=== PATIENT | male | born 1955 | race Asian ===

== ENCOUNTER 2020-08-29 01:58 | Inpatient (IN) | payer SELFPAY ==
[~2020-08-29] VITALS: Ht 182.9 cm; Wt 83.5 kg
[2020-08-29 02:01] VITALS: Ht 182.9 cm; Wt 83.5 kg
--- NOTE | 2020-08-29 03:06 | NUR ---
RT AT THE BEDSIDE. CATTLE DRIVER AT THE BEDSIDE
[2020-08-29 03:20] LABS: BASOPHIL % 0.1 % (0.2-1.5); PLATELET COUNT 185 x10^3mcL (152-348); RED CELL DISTRIBUTION WIDTH 12.7 % (12.1-16.2)
--- NOTE | 2020-08-29 04:03 | NUR ---
PT NOTED SATING AT 94-95% ON RA. PT REQUESTED OXYGEN THERAPY. PT PLACED ON 2 L VIA NC FOR COMFORT.
[2020-08-29 04:11] LABS: AST/SGOT 47 U/L (15-37); CALCIUM 8.4 mg/dL (8.5-10.1); CHLORIDE SERUM 95 mmol/L (98-107); CREATININE SERUM 1.2 mg/dL (0.7-1.3); GFR1 > 60 mL/min; GLUCOSE SERUM 246 mg/dL (74-106); POTASSIUM SERUM 3.5 mmol/L (3.5-5.1); SODIUM SERUM 130 mmol/L (136-145)
[2020-08-29 04:23] LABS: ALKALINE PHOSPHATASE 181 U/L (46-116); ALT/SGPT 95 U/L (16-63); BILIRUBIN TOTAL 1.11 mg/dL (0.20-1.00); CARBON DIOXIDE 27.4 mmol/L (21-32); LACTIC DEHYDROGENASE (LDH) 297 U/L (100-190); TOTAL PROTEIN, SERUM 7.6 g/dL (6.4-8.2)
[2020-08-29 04:37] LABS: C REACTIVE PROTEIN 29.6 mg/dL (<=0.9)
[2020-08-29 06:13] LABS: CHOLESTEROL/HDL RATIO 2.9; MAGNESIUM 2.1 mg/dL (1.8-2.4)
[2020-08-29 06:18] LABS: T3 TOTAL 0.75 ng/mL
[2020-08-29 06:22] LABS: FREE T4 1.34 ng/dL (0.76-1.46); FREE THYROXINE INDEX 2.6 ug/dL (1.4-4.5); T4(THYROXINE) 6.7 ug/dL (4.7-13.3)
[2020-08-29 06:32] LABS: microscopic required? YES; urine erythrocyte TRACE (NEGATIVE)
[2020-08-29 06:43] LABS: AMPHETAMINE QUAL UR NONE DETECTED (See below)
--- NOTE | 2020-08-29 07:20 | NUR ---
PATIENT LYING IN BED AWAKE, NAD NOTED AT THIS TIME. PATIENT AAOX4, RESPIRATIONS E/U. PATIENT STATES COUGH AND SOB X2 DAYS, CLOSE CONTACT WITH +COVID19 FRIEND X7 DAYS. JAYDEN EQUAL STRONG COMPLIANCE QUALITY PERFORMANCE ANALYST, +PMCS NOTED, IV PATENT AND FLUSHED WITH 10 MLS OF NS. SAFETY PRECAUTIONS IN PLACE AND CALL LIGHT WITHIN REACH.
--- NOTE | 2020-08-29 08:01 | NUR ---
CALLED PHARMACY TO ORDER PATIENT 0900 MEDICATIONS. PER [facility]ARENA MEDICATIONS WILL BE READY IN 15-20 INUTES.
--- NOTE | 2020-08-29 08:15 | NUR ---
LAB AT BEDSIDE
[2020-08-29 08:26] LABS: PLATELET COUNT 198 x10^3mcL (152-348); RED CELL DISTRIBUTION WIDTH 13.1 % (12.1-16.2)
[2020-08-29 08:55] LABS: BASOPHIL % 0 % (0.2-1.5)
[2020-08-29 09:00] LABS: ALKALINE PHOSPHATASE 177 U/L (46-116); ALT/SGPT 83 U/L (16-63); AST/SGOT 44 U/L (15-37); CALCIUM 8.9 mg/dL (8.5-10.1); CARBON DIOXIDE 28.4 mmol/L (21-32); CHLORIDE SERUM 96 mmol/L (98-107); GFR1 > 60 mL/min; GLUCOSE SERUM 172 mg/dL (74-106); SODIUM SERUM 131 mmol/L (136-145); TOTAL PROTEIN, SERUM 7.4 g/dL (6.4-8.2)
[2020-08-29 09:06] LABS: ALBUMIN 2.9 g/dL (3.4-5.0)
--- NOTE | 2020-08-29 11:30 | NUR ---
PATIENT MANPREET TEMPERATURE 100.7 F. PATIENT MEDICATED WITH TYLENOL 650 MG PO, PATIENT CALL LIGHT WITHIN REACH.
--- NOTE | 2020-08-29 11:38 | NUR ---
PATIENT TOOK SIP OF WATER STARTED COUGHING, PATIENT STARTED SATING 83-86% WITH NC ON 2L OF O2, INCREASED TO 4L, PATIENT CONTINUED SATING 84-86%, PLACED PATIENT ON SIMPLE MASK 10L OF O2 PATIENT CONTINUED SATING 85-86%. PATIENT THEN PLACED ON NON REBREATHER MASK ON 15L OF O2. PATIENT NOW SATING 90%, WILL CONTINUE TO MONITOR, CALL LIGHT WITHIN REACH.
--- NOTE | 2020-08-29 12:02 | NUR ---
PATIENT BS 170, PATIENT MEDICATED WITH REGULAR INSULIN 3 UNITS, BASED ON PATIENT SLIDING SCALE, PLEASE SEE EMAR. PATIENT TOLERATED WELL, CALL LIGHT WITHIN REACH. PATIENT IS NOW SATING 96% ON NON REBREATHER MASK WITH 15L, WILL CONTINUE TO MONITOR.
--- NOTE | 2020-08-29 12:05 | NUR ---
CALLED RT REGARDING PATIENT ABLUTEROL INH TREATMENT, PER EMAR.
--- NOTE | 2020-08-29 12:51 | NUR ---
PATIENT REMOVED FROM NON REBREATHER MASK TO NC ON 4L OF O2 AT THIS TIME. PATIENT NOW SATING 96% WITH 4L OF O2 VIA NC. PATIENT CONTINUES WITH TEMPERATURE OF 100.2 AND DIAPHORETIC, REMOVED BLANKET AND STARTED COOLING MEASURES. PATIENT FOOD AT BEDSIDE, WILL CONTINUE TO MONITOR, CALL LIGHT WITHIN REACH.
--- NOTE | 2020-08-29 13:41 | NUR ---
PATIENT ATE 75% OF FOOD. PATIENT STATES, "I FEEL BETTER." PATIENT CONTINUES WITH 100.9 F TEMPERATURE, NOTIFIED MD. CALL LIGHT WITHIN REACH.
--- NOTE | 2020-08-29 13:57 | NUR ---
PT GIVEN ICEPACKS TO AXILLA FOR FEVER. PT LAYING SUPINE WITH EYS CLOSE, NO DISTRESS. REMAINS CONNECTED TO FULL CM.
--- NOTE | 2020-08-29 15:05 | NUR ---
PATIENT LYING IN BED AWAKE, NAD AT THIS TIME. PATIENT STATES "I FEEL BETTER" PATIENT CALL LIGHT WITHIN REACH.
--- NOTE | 2020-08-29 17:15 | NUR ---
PATIENT BS207, MEDICATED WITH REGULAR INSULIN 6 UNITS SUBQ, PLEASE SEE EMAR, PATIENT TOLERATED WELL, CALL LIGHT WITHIN REACH.
--- NOTE | 2020-08-29 17:38 | NUR ---
PATIENT DINNER AT BEDSIDE
--- NOTE | 2020-08-29 18:18 | NUR ---
PATIENT ATE 60% OF HIS DINNER, PATIENT DURING DIINER STARTED SATTING 87-88% WITH 4L OF O2 VIA NC, PLACED ON 15L OF NON REBREATHER MASK, PATIENT NOW SATING 95%, WILL CONTINUE TO MONITOR, CALL LIGHT WITHIN REACH.
--- NOTE | 2020-08-29 19:00 | NUR ---
NOTIFIED RESIDENT DR. GARCIA, PATIENT BP178/91. PER RESIDENT DR. GARCIA, "I WILL PLACE MEDICATION ORDER AND PRN ORDER."
--- NOTE | 2020-08-29 19:26 | NUR ---
REPORT GIVEN TO ANTONIO TOMLINSON TO ASSUME PATIENT CARE
--- NOTE | 2020-08-29 20:28 | NUR ---
MEDICATED PT FOR FEVER. (1GM TYLENOL, 600MG IBU)
--- NOTE | 2020-08-29 23:48 | NUR ---
PT RESTING IN POSITION OF COMFORT IN GURNEY AT THIS TIME. NO ACUTE DISTRESS NOTED. BREATHING EVEN AND UNLABORED. GURNEY IN LOWEST POSITION. SAFETY MEASURES IN PLACE. NO APPARENT CHANGES AT THIS TIME.
--- NOTE | 2020-08-30 00:03 | NUR ---
REPORT GIVEN TO BUSHRA CLARK TO ASSUME CARE OF THE PT.
--- NOTE | 2020-08-30 01:40 | NUR ---
REC'D PT FROM ED VIA GAY ACCOMPANIED BY NURSE. PT ADM WITH CC OF SOB AND FEVERS. AAOX4, SPEECH CLEAR, FOLLOWS COMMANDS. C/O MILD R SIDED DURAN. TELE 42. A FIB. DENIES CP, DIZZINESS, OR PALPITATIONS. DENIES RESP DISTRESS OR SOB. BREATHING EVEN/UNLABORED ON 5L NC, SPO2 93%. ABD SOFT/ROUND. DENIES ABD PAIN, TENDERNESS, OR N/V. VOIDING FREELY. AMBULATORY. SKIN INTACT. IV TO LW, SITE WNL. ORIENTED TO DEVICES AND SURROUNDINGS. CALL LIGHT WITHIN REACH, BED AT LOWEST POSITION. REPORT GIVEN TO AMBER TOMLINSON.
[2020-08-30 01:42] VITALS: BP 134/79
[2020-08-30 06:08] VITALS: BP 144/90
--- NOTE | 2020-08-30 07:01 | NUR ---
PATIENT C/O DURAN 01/14. GAVE TYLENOL PRESCRIBED FOR DURAN. ALSO BROUGHT PATIENT THEIR PERSONAL PHARMACY ANCILLARY THAT A FAMILY MEMBER BROUGHT FROM THE ER.
--- NOTE | 2020-08-30 08:00 | NUR ---
RECEIVED PATIENT ALERT AND ORIENTED TIMES FOUR. JENNIFER PRESTON WITH MINIMAL MOVEMENT AND A KIND OF FLAT AFFECT AND ONLY ANSWERING MINIMALLY QUESTIONS. LUNG ARE DIMINISHED WITH A TIGHT SOUNDING RESPIRATION AND FINE RALSE TO THE LEFT LUNG. JENNIFER PRESTON HAD FEVE ROVER NIGHT AND TYLENOL WAS GIVEN. HE HAS NO FEVER AT THIS TIME. JENNIFER DEL ROSARIO BEEN AMBULATYORY AND HAS BEEN FEELING GENERAL WEAKNESS AND HAS BEEN RESTING IN BED. HE HAS 02 AT FIVE LITERS VIA NASAL CANNULA AND HAS NOTED. LABS OF WBC AT 14.6 AND BLOOD SUGAR THIS AM AT 169 WITH COVERAGE. DURAN HS BEEN NOTED WITH FERRITIN LEVEL OF 1129 AND HAS BEEN WITH CHEST XRAY SHOWING PNEUMONIA. PATIENT HAS HX OF COCAINE AND ALCOHOL USE AND HAS BEEN SEEN BY DR STYLES AND HAS BEEN SHOWN POSITIVE FOR COVID 19. HE RECEIVED LOVENOX OREERED AND IS ON TELE MONITOR WITH NSR AT THIS TIME.
[2020-08-30 09:13] VITALS: BP 141/92
[2020-08-30 10:08] LABS: PLATELET COUNT 248 x10^3mcL (152-348)
[2020-08-30 10:15] LABS: CALCIUM 8.7 mg/dL (8.5-10.1); CARBON DIOXIDE 27.6 mmol/L (21-32); CHLORIDE SERUM 97 mmol/L (98-107); CREATININE SERUM 1.1 mg/dL (0.7-1.3); GFR1 > 60 mL/min; GLUCOSE SERUM 146 mg/dL (74-106); MAGNESIUM 2.6 mg/dL (1.8-2.4); PHOSPHOROUS 3.1 mg/dL (2.5-4.9); POTASSIUM SERUM 3.5 mmol/L (3.5-5.1); SODIUM SERUM 134 mmol/L (136-145)
[2020-08-30 10:53] LABS: C REACTIVE PROTEIN 43.9 mg/dL (<=0.9)
[2020-08-30 12:05] VITALS: BP 166/89
--- NOTE | 2020-08-30 12:37 | NUR ---
PATIENT HAS FEVER OF ABOVE 101 AND GAVE TYLENOL ORDERED. REMDESIVIR ORDERED FOR PATIENT. SEEN BY THE PHYSICIAN.
--- NOTE | 2020-08-30 12:44 | NUR ---
PATIENT HAS BEEN SEEN BY PHYSICAL THERAPY AND DEEMED INDEPENDANT AT THIS TIME. TOLERATED OOB WELL.
[2020-08-30 15:46] LABS: BAND NEUTROPHIL 2 % (0-10); MONOCYTE 7 % (0-7); PLATELET MORPHOLOGY PLATELETS NORMAL; SEGMENTED NEUTROPHILS 88 % (37-75); rbc morphology (normal/abnorm) NORMAL (NORMAL)
--- NOTE | 2020-08-30 17:48 | NUR ---
PATIENT HAS BLODO SUGAR AT THIS TIME AT 225 AND COVERAGE INDICATED. TO START REMDESIVIR AND WILL MONITOR FOR ANY ADVERSE REACTION.
[2020-08-30 17:50] VITALS: BP 145/86
--- NOTE | 2020-08-30 19:13 | NUR ---
RECIEVED PT FROM AM RN. CALLED INTO PTS ROOM PT HAS NO CONCERNS AT THIS TIME. AWARE OF CHANGE OF SHIFT. WILL FOLLOW UP SHORTLY WITH PM ASSESSMENT.
[2020-08-30 21:00] VITALS: BP 172/87
--- NOTE | 2020-08-30 23:39 | NUR ---
PT STATING HE FEELS SOB, O2 SAT CHECKED PT WAS SATTING AT 85%. PT WAS ON 5L NC, SWITCHED OVER TO OXYMIZER, TITRATED O2 TO KEEP PT ABOVE 90%. PT IS NOW ON 8L OXYMIZER. PT REQUESTING A RESP TX. WILL PAGE RT TO COME PROVIDE TX.
--- NOTE | 2020-08-31 01:29 | NUR ---
RT WAS HERE TO ASSESS AND EVAL PT . PT NOW ON 15L BUBBLE HUMIDIFIER, SATTING 95%. WILL CONTINUE TO MONITOR.
[2020-08-31 05:56] VITALS: BP 161/89
--- NOTE | 2020-08-31 06:36 | NUR ---
PT REMAINED STABLE THROUGHOUT THE NIGHT. PT IS NOW ON 15L BUBBLE HUMIDIFIER, PT SATTING WELL. PT STATES HE FEELS MUCH BETTER WITH THIS O2 METHOD. PT HAS NO CONCERNS AT THIS TIME. BLOOD GLUCOSE CHECKED THIS AM, AND COVERED PER SLIDING SCALE. CALL LIGHT IN REACH. WILL CONTINUE TO MONITOR. WILL ENDORSE ALL CARE TO AM RN.
[2020-08-31 08:47] LABS: CALCIUM 8.5 mg/dL (8.5-10.1); CARBON DIOXIDE 26.1 mmol/L (21-32); CHLORIDE SERUM 98 mmol/L (98-107); GFR1 > 60 mL/min; GLUCOSE SERUM 122 mg/dL (74-106); MAGNESIUM 2.5 mg/dL (1.8-2.4); PHOSPHOROUS 3.1 mg/dL (2.5-4.9); POTASSIUM SERUM 3.7 mmol/L (3.5-5.1); SODIUM SERUM 134 mmol/L (136-145)
[2020-08-31 08:51] LABS: BILIRUBIN DIRECT 0.29 mg/dL (0.0-0.2); BILIRUBIN TOTAL 0.6 mg/dL (0.20-1.00)
--- NOTE | 2020-08-31 09:00 | NUR ---
PT REMAINS IN BED BREATHING TO 15L BUBBLE HUMMIDIFER. SPO2 95%. TELE #[address] R-WRIST 22G IV CDI NO ACUTE DISTRESS NOTED UPON ASSESSMENT. BED IN LOWEST POSITION CALLL LIGHT IN REACH WILL CONTINUE TO MONITOR.
[2020-08-31 09:11] LABS: PLATELET COUNT 273 x10^3mcL (152-348); RED CELL DISTRIBUTION WIDTH 12.9 % (12.1-16.2)
[2020-08-31 09:12] LABS: ALBUMIN 2.3 g/dL (3.4-5.0)
[2020-08-31 09:24] VITALS: BP 161/91
[2020-08-31 09:33] LABS: BASOPHIL % 0 % (0.2-1.5)
--- NOTE | 2020-08-31 09:50 | NUR ---
pt presenting with bp 181/106 map 134. patiene denies c/p, anxiet or general pain. prn hydralazine given for bp. will contune to monitor.
[2020-08-31 09:51] VITALS: BP 181/106
--- NOTE | 2020-08-31 11:30 | NUR ---
pt resting in bed breathing e/u bp 141/88. prn hydralazine effective. pt denies chest pain, sob and is currently asleep in bed.
[2020-08-31 11:56] VITALS: BP 140/82
--- NOTE | 2020-08-31 12:00 | NUR ---
STARTED NEW IV R-WRIST 22G . D/C LAC 18G IV. LAC IV DRESSING WAS IN BAD REPAIR AND DID NOT SUPPORT CATHETER.
[2020-08-31 17:20] VITALS: BP 155/93
--- NOTE | 2020-08-31 19:00 | NUR ---
PT REMAINS IN BED BREAHTING E/U NO RESPIRATORY DISTRESS, NO ACUTE DISTRESS NOTED AT THIS TIME. PATIENT AWARE OF PLAN OF CARE AND CHANGE OF SHIFT. BED IN LOWEST POSITION CALL LIGHT IN REACH WILL ENDORSE TO SPINDLE REPAIRER NURSE.
--- NOTE | 2020-08-31 20:42 | NUR ---
PT A/O X 4. PT IS CALM AND COORDINATES WELL WITH THE PROCEDURES. PT HAD AN OCCLUDED IV SITE AT RIGHT ANTECUBITAL, PT NEW IV SITE WAS PLACED ON RIGHT HAND AND IS INFUSING WELL, PT IV SITE WAS INSERTED BY NURSE JIMI. PT CALL LIGHT WAS PLACE ON EASY REACH. PT VITAL SIGNS ARE STABLE.
[2020-08-31 21:28] VITALS: BP 154/90
--- NOTE | 2020-08-31 23:39 | NUR ---
I HAVE REVIEWED THE DATA COLLECTION BY BUSHRA ATWOOD (NAME): CORA FUNG ENTERED ON (DATE/TIME): 08/31/20 I CONCUR WITH THE DATA AND ANY EXCEPTIONS OR COMMENTS ARE LISTED BELOW:
[2020-09-01 05:52] VITALS: BP 153/97
--- NOTE | 2020-09-01 06:18 | NUR ---
PT IS ASLEEP BUT EASILY AWAKEN. PT IS A/O X 4. PT COORDINATES WITH THE NURSE WELL. PT CALL LIGHT PLACE ON EASY REACH. PT BED HEIGHT PLACED ON A SAFE HEIGHT. PT ENDORSED TO INCOMING NURSE.
--- NOTE | 2020-09-01 06:51 | NUR ---
PT DENIES ANY FORM OF RESPIRATORY DISTRESS. UPON CHECKED THE SPO2 WAS RANGING FROM 88% - 92 %. PT WAS INSTRUCTED TO MAINTAIN N/C AT ALL TIME TO PREVENT 02 DESATURATION.
--- NOTE | 2020-09-01 07:22 | NUR ---
PT REPORT RECIVED PATIENT REMAINS IN BED BREATHING, NO ACUTE DISTRESS NOTED. WILL CONITNUE WITH PLAN OF CARE.
[2020-09-01 08:49] LABS: BASOPHIL % 0.1 % (0.2-1.5); PLATELET COUNT 299 x10^3mcL (152-348)
--- NOTE | 2020-09-01 09:00 | NUR ---
PT REMAINS IN BED BREATHING TO 15L O2 VIA BUBBLE HUMMIDIFER. SPO2 89% TO ENCOURAGE PRONNING FOR PATIENT THROUGHOUT SHIFT. TELE #48 PRESENTING WITH NSR. ABD SOFT ROUND AND NON-TENDER. REQUIRES MIMINNAL ASSISTANCE TO USE BSC. ENCORUAGE TO USE CALL LIGHT TO GET ASSISTANCE TO USE COMMODE. BED IN LOWEST POSITION CALL LIGHT IN REACH WILL CONTINUE TO MONITOR.
[2020-09-01 09:01] LABS: CARBON DIOXIDE 25.9 mmol/L (21-32); CHLORIDE SERUM 100 mmol/L (98-107); GFR1 > 60 mL/min; GLUCOSE SERUM 123 mg/dL (74-106); MAGNESIUM 2.7 mg/dL (1.8-2.4); PHOSPHOROUS 3.4 mg/dL (2.5-4.9); POTASSIUM SERUM 3.7 mmol/L (3.5-5.1); SODIUM SERUM 135 mmol/L (136-145)
[2020-09-01 09:42] VITALS: BP 155/85
--- NOTE | 2020-09-01 10:36 | NUR ---
RECIEVED STAT ORDER FOR CONV. PLASMA. CONSENT OBTAINED WITH PATIENT. AND PHSYCIAN SIGNATURE OBTAINED FORM IS IN THE PATIENTS CHART.
[2020-09-01 12:14] LABS: TOTAL PROTEIN, SERUM 6.2 g/dL (6.4-8.2)
[2020-09-01 12:15] LABS: ALBUMIN 2.3 g/dL (3.4-5.0); BILIRUBIN DIRECT 0.19 mg/dL (0.0-0.2); BILIRUBIN TOTAL 0.51 mg/dL (0.20-1.00)
--- NOTE | 2020-09-01 13:03 | NUR ---
PT DESATING SPO2 78% CURRENTLY ON 15L O2 VIA BUBBLING HUMMIDIFIER. ENCORAGED PRONNING FOR PATIENT. PRONNING EFFECT AND INCREASED SPO2 89%. WILL CONTINUE TO MONIOT AND ENCOURAGE PATIENT PRONNING. PATIENT STATED " PRONNING IS EFFECTIVE. WILL CONTINUE TO MONITOR SPO2.
[2020-09-01 13:35] VITALS: BP 140/79
[2020-09-01 17:40] VITALS: BP 152/78
--- NOTE | 2020-09-01 18:47 | NUR ---
PT REMAINS IN BED BREATHING TO 15L O2 VIA BUBBLE HUMMIDIFER. SPO2 87%. REMDESIIVR CURRENTLY INFSUING. BED IN LOWEST POSITION CALL LIGHT IN EACH. WILL ENORSE TO RESERVOIR CARETAKER NURSE.
[2020-09-01 21:39] VITALS: BP 138/70
--- NOTE | 2020-09-01 21:46 | NUR ---
PT IS LYING ON BED AWAKE. PT IS COHERENT AND EASY TO WORK WITH. PT UNDERSTOOD TO MAINTAIN PROTOCOLS AND TEACHINGS AND VERBALIZED UNDERSTANDING. PT CALL LIGHT PLACED ON EASY REACH. PT BED PLACED ON A SAFE HEIGHT. PT IS IN NO APPARENT DISTRESS.
--- NOTE | 2020-09-02 01:18 | NUR ---
PT ASLEEP. PT HAD BOWEL MOVEMENT. PT DENIES ANY KIND OF DISTRESS. PT CALL LIGHT PUT ON EASY REACH.
[2020-09-02 05:59] VITALS: BP 140/75
--- NOTE | 2020-09-02 06:17 | NUR ---
PT HAS NO APPARENT PROBLEM. PT LYING ON BED ASLEEP BUT EASILY ARROUSED. PT HAS STABLE VS. PT DESATTED AROUND 80%, INSTRUCTED TO DO A PRONE POSITION TO IMPROVE 02 SATURATION PT VERBALIZED UNDERSTANDING. PT CALL LIGHT ON EASY REACH. PT ENDORSED TO INCOMING NURSE.
--- NOTE | 2020-09-02 09:00 | NUR ---
PT REMAINS IN BED BREATHING TO 15L VIA NC LUNG SOUNDS DIMNISHED IN LUNG APEXES AND FINE CRACKLES IN LUNG BASES.NO ACUTE DISTRESS ONLY DISCONFORT AT THIS TIME. CO/ SOB AND HEADACHE. ENCORUGED SIDELYING POSITION EFFECTIVE. AND PROVIDED PRN TYENOL. BP/173/77 MAP 102. PROVIDED PRN PO HYDRALAZINE. WILL CONITNUE TO MONITOR. BED IN LWOEST POSITION, CALL LIGHT IN REACH WILL CONTINUE TO MONITOR.
[2020-09-02 09:15] VITALS: BP 173/77
[2020-09-02 10:06] LABS: PLATELET COUNT 326 x10^3mcL (152-348); RED CELL DISTRIBUTION WIDTH 13.4 % (12.1-16.2)
[2020-09-02 10:32] LABS: CALCIUM 8.4 mg/dL (8.5-10.1); CARBON DIOXIDE 22.8 mmol/L (21-32); CHLORIDE SERUM 99 mmol/L (98-107); CREATININE SERUM 1.1 mg/dL (0.7-1.3); GFR1 > 60 mL/min; GLUCOSE SERUM 141 mg/dL (74-106); MAGNESIUM 2.7 mg/dL (1.8-2.4); POTASSIUM SERUM 4.2 mmol/L (3.5-5.1); SODIUM SERUM 131 mmol/L (136-145)
[2020-09-02 10:55] LABS: BILIRUBIN DIRECT 0.25 mg/dL (0.0-0.2); BILIRUBIN TOTAL 0.75 mg/dL (0.20-1.00)
[2020-09-02 10:57] LABS: ALBUMIN 2.3 g/dL (3.4-5.0)
[2020-09-02 11:13] LABS: MONOCYTE 5 % (0-7); SEGMENTED NEUTROPHILS 90 % (37-75)
[2020-09-02 11:14] LABS: rbc morphology (normal/abnorm) NORMAL (NORMAL)
[2020-09-02 12:30] VITALS: BP 137/70
[2020-09-02 16:28] VITALS: BP 133/71
[2020-09-02 20:34] VITALS: BP 129/68
--- NOTE | 2020-09-02 20:41 | NUR ---
PT REMAINS IN BED BREATHING TO 15L HIFLO SPO2:86. TELE #[address] NO ACUTE DISTRESS NOTED BED IN LOWEST POSITION, CALL LIGHT IN REACH. WILL ENDORSE TO PUNCHBOARD FILLING MACHINE OPERATOR NURSE
--- NOTE | 2020-09-02 21:54 | NUR ---
PT LYING ON BED. PT DENIES ANY PAIN OR SOB. BUT PT SPO2 TENDS TO GO DOWN BUT PT WAS INSTRUCTED TO DO PRONE OR SIDE LYING TO PREVENT 02 DESATURATION. PT HAS STABLE VS. PT CALL LIGHT ON EASY REACH. PT BED PLACED ON A SAFETY HEIGHT.
--- NOTE | 2020-09-03 00:27 | NUR ---
PT ASLEEP. PT ZOSYN WAS GIVEN AT 0000. PT ON STABLE CONDITION AND HAS NO APPARENT DISTRESS.
[2020-09-03 04:39] VITALS: BP 118/77
--- NOTE | 2020-09-03 06:22 | NUR ---
PT LYING ON BED. PT IS AMBULATORY. PT DENIES ANY PAIN AT THIS TIME. PT VS STABLE. PT CALL LIGHT PUT ON EASY REACH.
[2020-09-03 07:38] LABS: BASOPHIL % 0.1 % (0.2-1.5); PLATELET COUNT 327 x10^3mcL (152-348); RED CELL DISTRIBUTION WIDTH 13.1 % (12.1-16.2)
--- NOTE | 2020-09-03 08:00 | NUR ---
RECEIVED PT IN BED A/A/OX4 DENIES DURAN. RESP EVEN AND UNLABORED WITH DIMINISHED BS BILAT. ON O2 VIA BUBBLE NC WITH HUMIDIFIER AT 15L/MIN. DENIES ANY SOB/COUGH AT THIS TIME. NSR ON TELE. DENIES ANY CP/PRESSURE. NO EDEMA NOTED WITH IV SL TO LFA. ABD SOFT, NONTENDER WITH ACTIVE BS X4. VOIDING FREELY USING URINAL. CALL LIGHT IN REACH NEEDS ATTENDED TO.
[2020-09-03 08:27] LABS: BILIRUBIN TOTAL 0.74 mg/dL (0.20-1.00); TOTAL PROTEIN, SERUM 6.7 g/dL (6.4-8.2)
[2020-09-03 08:33] LABS: ALBUMIN 2.2 g/dL (3.4-5.0)
[2020-09-03 09:12] LABS: BILIRUBIN DIRECT 0.24 mg/dL (0.0-0.2)
[2020-09-03 11:35] LABS: CALCIUM 8.4 mg/dL (8.5-10.1); CARBON DIOXIDE 22.5 mmol/L (21-32); CHLORIDE SERUM 98 mmol/L (98-107); GFR1 > 60 mL/min; GLUCOSE SERUM 95 mg/dL (74-106); MAGNESIUM 2.6 mg/dL (1.8-2.4); PHOSPHOROUS 2.9 mg/dL (2.5-4.9); POTASSIUM SERUM 4.1 mmol/L (3.5-5.1); SODIUM SERUM 134 mmol/L (136-145)
--- NOTE | 2020-09-03 11:45 | NUR ---
PT ASSISTED TO BSC, HAD SMALL BM. TOLERATED ACTIVITY WELL. DENIES ANY DISCOMFORT. CALL LIGHT IN REACH NEEDS ATTENDED TO.
[2020-09-03 13:11] VITALS: BP 135/78
[2020-09-03 13:12] VITALS: BP 109/55
--- NOTE | 2020-09-03 15:50 | NUR ---
PT RESTING AT THIS TIME. DENIES ANY DISCOMFORT. CALL LIGHT IN REACH NEEDS ATTENDED TO.
[2020-09-03 17:13] VITALS: BP 157/78
--- NOTE | 2020-09-03 18:10 | NUR ---
PT RESTING AT THIS TIME. DENIES ANY DISCOMFORT. ONGOING REMDESEVIR LAST DOSE. DENIES ANY N/V OR DISCOMFORT. REMAINS WITH O2 VIA BUBBLE OXYMIZER AT 15L/MIN SATING MID 90S. CALL LIGHT IN REACH NEEDS ATTENDED TO.
[2020-09-03 20:36] VITALS: BP 144/80
--- NOTE | 2020-09-04 01:27 | NUR ---
CONDITION GUARDED WILL CONTINUE TO MONITOR AND ASSESS CALL LIGHT IN REACH
[2020-09-04 06:17] VITALS: BP 140/76
--- NOTE | 2020-09-04 07:30 | NUR ---
RECEIVED PT IN BED A/A/OX4 DENIES DURAN. RESP EVEN AND UNLABORED WITH DIMINISHED BS BILAT. C/O INCREASE SOB OVERNIGHT. ON O2 VIA NRB AT 15L/MIN SATING 90% ENCOURAGE PRONING AND TURNING ON SIDE MUCH TOLERATED. PER REPORT PT NONCOMPLIANT OVERNIGHT ON PRONING. DENIES ANY CP/PRESSURE AT THIS TIME TIME. NO EDEMA NOTED WITH IV SL TO LFA. ABD SOFT, NONTENDER WITH ACTIVE BS X4. DENIES ANY N/V AT THIS TIME. VOIDING FREELY WITH MILD WEAKNESS. CALL LIGHT IN REACH NEEDS ATTENDED TO. DROPLET PRECAUTIONS MAINTAINED.
[2020-09-04 09:21] VITALS: BP 136/78
[2020-09-04 12:30] VITALS: BP 133/68
--- NOTE | 2020-09-04 15:20 | NUR ---
PT RESTING AT THIS TIME STATED HE FELT BETTER FROM THIS AM. IMPROVEMENT WITH SOB. CALL LIGHT IN REACH NEEDS ATTENDED TO.
[2020-09-04 16:44] VITALS: BP 139/74
--- NOTE | 2020-09-04 18:30 | NUR ---
PT RESTING AT THIS TIME. DENIES ANY DISCOMFORT. REMAINS ON NRB MASK AT 15L/MIN MID 90S. REPORTS IMPROVEMENT WITH SOB REPORTED THIS AM. CALL LIGHT IN REACH NEEDS ATTENDED TO.
--- NOTE | 2020-09-04 20:00 | NUR ---
RECIEVED PATIENT AWAKE IN BED. A/OX4. VSS. AFEBRILE. ON 15L NRB. RESPIRATIONS EVEN AND UNLABORED. DENIES PAIN OR SOB AT THIS TIME. NO ACUTE DISTRESS NOTED. WILL CONTINUE TO MONITOR FOR SAFETY. Stacia ARANA RN.
[2020-09-04 20:20] LABS: BASOPHIL % 0.1 % (0.2-1.5); PLATELET COUNT 398 x10^3mcL (152-348); RED CELL DISTRIBUTION WIDTH 13.2 % (12.1-16.2)
[2020-09-04 21:10] LABS: ALKALINE PHOSPHATASE 148 U/L (46-116); ALT/SGPT 129 U/L (16-63); AST/SGOT 49 U/L (15-37); BILIRUBIN TOTAL 0.8 mg/dL (0.20-1.00); CALCIUM 8.5 mg/dL (8.5-10.1); CARBON DIOXIDE 24.1 mmol/L (21-32); CHLORIDE SERUM 97 mmol/L (98-107); GFR1 > 60 mL/min; GLUCOSE SERUM 161 mg/dL (74-106); POTASSIUM SERUM 4.2 mmol/L (3.5-5.1); SODIUM SERUM 131 mmol/L (136-145)
[2020-09-04 21:11] LABS: ALBUMIN 2.3 g/dL (3.4-5.0)
[2020-09-04 21:30] VITALS: BP 136/71
[2020-09-05 05:55] VITALS: BP 133/78
--- NOTE | 2020-09-05 06:00 | NUR ---
PATIENT REMAINS IN STABLE CONDITION. NO RESPIRATORY DISTRESS NOTED. Stacia ARANA RN.
[2020-09-05 08:08] LABS: BASOPHIL % 0.1 % (0.2-1.5); CALCIUM 8.4 mg/dL (8.5-10.1); CARBON DIOXIDE 25.2 mmol/L (21-32); CHLORIDE SERUM 99 mmol/L (98-107); GFR1 > 60 mL/min; GLUCOSE SERUM 113 mg/dL (74-106); PLATELET COUNT 384 x10^3mcL (152-348); POTASSIUM SERUM 4.5 mmol/L (3.5-5.1); RED CELL DISTRIBUTION WIDTH 13.3 % (12.1-16.2); SODIUM SERUM 133 mmol/L (136-145)
[2020-09-05 09:02] VITALS: BP 138/75
--- NOTE | 2020-09-05 09:12 | NUR ---
RECEIVED REPORT FROM [facility] SHIFT NURSE, PATIENT HAD UNEVENTFUL NIGHT. VS ARE STABLE, PATIENT RESTING IN BED HIGH FOWLERS, NRB MASK 15L SATING 89%, AOX4, ABLE TO COMMUNICATE NEEDS. NO COMPLAINTS OF DISCOMFORT OR PAIN AT THIS TIME. WILL CONTINUE MONITORING.
[2020-09-05 11:51] VITALS: BP 133/75
--- NOTE | 2020-09-05 13:00 | NUR ---
VITMAIN D AND ZINC NOT GIVEN, PHARMACY [facility], NO MEDS IN PYXUS. PHARMACY MADE AWARE.
--- NOTE | 2020-09-05 15:40 | NUR ---
Initial Nutrition Assessment: WendyA ARSLAN ROBERTS 65M MR Dx: Hypoxia, COVID 19 PNA PMHx: none noted PSHx: none noted Labs: (09/05) Na 133L, BUN 30H, BG 113H, POC BG 114H, Ca 8.4L, (09/04) WBC 11.5H, AST 49H, ALT 129H, Alk ph 148H, Albumin 2.3L, (09/03) Mg 2.6H, Direct bilirubin 0.24H, (08/30) CRP 43.9H, (08/29) A1C 6.4H, Ferritin 1129.3H, *Lipid panel WNL on 08/29 Meds: Zosyn, Mucinex, Colace, Humulin, Zinc sulfate, Vitamin D, Vitamin C, Decadron, Norvasc, Apresoline, Tylenol Diet: Regular PO intake since admission: 50-100% x 11 meals with average PO intake of 56.8% Ht: 182.88cm/72in Wt: 83.461kg/184lbs BMI: 25kg/m2 Bed scale: IBW: 80.91kg/178lbs %IBW: 103.15% UBW: 160lbs per pt's Age: 65 Food Allergies: No per pt's Edema: none noted Last BM: 09/03 Skin: skin intact Bharath: 23 Per H and P (08/29), This is a 65 y/o M with non-significant PMH presented to the ED for fever for 1 day. Patient states that he had headache, body aches, SOB a cough for last week. Yesterday he developed fever, which prompted him to come to the ED. He took Tylenol 1000mg which didn't help. Otherwise pt denies any N/V, diarrhea, chest or abd pain, sick contacts. Pt was admitted with dx: acute hypoxic respiratory failure and viral sepsis 2/2 COVID PNA, newly diagnosis DM, Transaminitis, hyponatremia, Hypocalcemia, Mild PCM, DVT RD Note (09/05/2020) Per progress note (09/05), no acute event overnight, remains on 15L NRB, leukocytosis continues to improve. RD was not able to get in touch with pt via bedside phone. RD spoke with pt's to gather information. Per pt's , she did not notice any recent weight changes, but they also didn't closely monitor his body weight, and pt's last weight was 160lbs per pt's . At home, pt followed a regular diet and preferred foods with heavy flavors. Pt's stated that pt sometimes drank up to several cans of soda during summertime, but she tries to make fresh fruit juices for pt 2-3 times a week. Pt did not practice any physical activity outside of work d/t pt's work was very physically demanding per pt's . Problem with: N/V/D/C: none per RN Problems with: Chewing: Swallowing: none per RN Current appetite: poor per RN, a couple bites of toast this morning for breakfast Recent wt change: none per pt's %wt change: none per pt's Height:183cm Vitamin/Supplement use: pt's made fruit juices 2-3 times a week, no other supplements otherwise Special diet at home: regular diet. Pt likes food with heavy flavors per pt's Physical activity: working. Nutrition education given (specify specific nutrition education and handout given): Encourage pt's to reduce pt's add-ed sugar intake d/t A1C=6.4%. Food-drug interactions? Education given? n/a Estimated Nutritional Needs Based on ideal body weight (80kg) Energy: 7100-9983 kcal/day (30-35 kcal/kg for COVID) Protein: 96-120 g/day (1.2-1.5g/kg for COVID) Fluid: 2579-1952 mL/day (1 mL/kcal) Nutrition Diagnosis: 1. Excessive carbohydrate intake r/t nutrition knowledge deficit a/e/b pt's reporting pt's preference for sweet and heavy flavored food and pt's A1C=6.4% on 08/29. 2. Increased energy and protein intake r/t viral infection a/e/b pt has COVID infection. 3. Inadequate energy and protein intake r/t poor PO intake a/e/b pt average PO intake of 56.8% since admission. Intervention 1. continue with regular diet as tolerate 2. Recommend glucerna BID for additional 440kcal and 20g protein. 3. If pt's PO intake improves, recommend adding CCHO diet restriction. Monitor/Evaluate Goal: PO intake at least 75% of estimated needs Monitor: PO intake, Labs, GI function, ONS intake F/U in 2-3 days as high risk 09/07-2
[2020-09-05 16:24] VITALS: BP 128/72
--- NOTE | 2020-09-05 18:26 | NUR ---
PATIENT MAINTAINED STBALE THROUGH SHIFT. VS MAINTAINED STBALE. PATIENT A0X4. NO DISCOMFORT OR PAIN WAS STATED. PATIENT WBC CAME BACK 16.6 DR ORDERED CXR, XRAY SHOWED LOW LUNG VOLUMES. WILL ENDORSE REPORT TO SKIDDER.
[2020-09-05 20:51] VITALS: BP 125/75
[2020-09-06 04:54] VITALS: BP 120/65
--- NOTE | 2020-09-06 08:00 | NUR ---
SEEN IN BED AAOX4. ON 15L NRB O2SAT 92%. DENIES PAIN. GEN BODY WEAKNESS, ENCOURAGED TO TURN ON SIDE AND PRONING, VERBALIZED UNDERSTANDING. STATED HAD FAIR APPETITE. VOIDS FREELY STATED USE URINAL AT BEDSIDE. BSC PROVIDED. S/L ON LFA FLUSHED PATENT. CALL LIGHT PLACED WITHIN EASY REACH. SIDERAILS UP X2.
[2020-09-06 08:23] LABS: BASOPHIL % 0.1 % (0.2-1.5); RED CELL DISTRIBUTION WIDTH 13.3 % (12.1-16.2)
[2020-09-06 08:48] LABS: CALCIUM 8.3 mg/dL (8.5-10.1); CARBON DIOXIDE 24.8 mmol/L (21-32); CHLORIDE SERUM 100 mmol/L (98-107); GFR1 > 60 mL/min; GLUCOSE SERUM 110 mg/dL (74-106); LACTIC DEHYDROGENASE (LDH) 354 U/L (100-190); POTASSIUM SERUM 4.5 mmol/L (3.5-5.1); SODIUM SERUM 133 mmol/L (136-145)
[2020-09-06 09:04] LABS: PLATELET COUNT 408 x10^3mcL (152-348)
[2020-09-06 09:54] VITALS: BP 139/71
[2020-09-06 13:01] VITALS: BP 123/68
--- NOTE | 2020-09-06 16:00 | NUR ---
REFUSED NRB STATED I WANT TO TRY A SIMPLE ONE, OXYMIZER AT 12LPM INPLACE NOTED O2SAT 90% WILL CONTINUE TO MONITOR.
[2020-09-06 16:34] VITALS: BP 117/67
[2020-09-06 16:36] VITALS: BP 117/67
--- NOTE | 2020-09-06 16:52 | NUR ---
CONSENT FOR PICC LINE INSERTION SIGNED BY PATIENT WHO IS AWAKE, ALERT, ORIENTED X4.
[2020-09-06 20:22] VITALS: BP 128/62
--- NOTE | 2020-09-06 20:30 | NUR ---
PT IN BED AWAKE, A/O X4 ABLE TO FOLLOW COMMANDS, ABLE TO MAKE NEEDS KNWON, SPEECH CLR. NO C/O PAIN. NO RESP DISTRESS NOTED, ON 12L OYXIMIZER, LUNGS SOUND DIM JAYDEN. ON TELE 48, NO C/O CHEST PAIN AT THIS TIME. RADIAL AND PEDAL PULSES PRESENT, NO EDEMA NOTED. IV SITE TO LFA, PATENT AND FLUSHING WELL. BED TO LOWEST POSITION, CALL LIGHT WITHIN REACH. WILL CONT TO MONITOR.
[2020-09-07 05:46] VITALS: BP 110/59
--- NOTE | 2020-09-07 08:04 | NUR ---
PT REMAINED IN BED, RESTING COMFORTABLY WITH EYES CLOSED, EASILY AROUSABLE. PT REMAINED ON 12L OXYMIZER, SPO2 OF 96%. NO C/O PAIN, NO RESP DISTRESS NOTED. NEEDS ATTENDED AND MET, FREQUENT VISUAL MONITORING RENDERED. ON ABX THERAPY, NO ASE NOTED. BED TO LOWEST POSITION, CALL LIGHT WITHIN REACH, ENDORSED CARE TO NEXT SHIFT NURSE.
[2020-09-07 08:18] LABS: BASOPHIL % 0.1 % (0.2-1.5); PLATELET COUNT 370 x10^3mcL (152-348)
[2020-09-07 08:35] LABS: CALCIUM 8.1 mg/dL (8.5-10.1); CARBON DIOXIDE 25.8 mmol/L (21-32); CHLORIDE SERUM 102 mmol/L (98-107); GFR1 > 60 mL/min; GLUCOSE SERUM 105 mg/dL (74-106); POTASSIUM SERUM 4.4 mmol/L (3.5-5.1); SODIUM SERUM 134 mmol/L (136-145)
[2020-09-07 08:55] VITALS: BP 133/68
--- NOTE | 2020-09-07 11:10 | NUR ---
PT A/O X4, BEDRESTING. ON 12L OXYMIZER. NOT IN ACUTE DISTRESS, DENIES SOB OR CHEST PAIN. IV ZOSYN IS COMPLETED FOR THIS MORNING. MORNING LABS SHOWED WBC 16.11, CALLED AROUND 9AM, CELL PHONE NOT IN SERVICE. WILL TRY AGAIN LATER. GENERALIZED WEAKNESS NOTED, PATIENT IS NEWLY DIAGNOSED WITH DM II. DM EDUCATIONS GIVEN REGARDING DIET, EXERCISE AND LIFE STYLE CHANGE. PATIENT UNDERSTAND WELL. WILL CONTINUE TO MONITOR PATIENT AND TRY TO TITRATE DOWN O2.
[2020-09-07 11:30] VITALS: BP 123/73
[2020-09-07 16:33] VITALS: BP 136/73
--- NOTE | 2020-09-07 18:16 | NUR ---
PT IS AAO X4, ON 12L OXYMIZER,SATTING 94% AND ABOVE, ATTEMPTED TITRATING O2 TO 10L, SATTING DOWNED TO 93% AND LOWER. WILL CONTINUE 12L FOR NOW. NO SOB OR CHEST PAIN COMPLAINED, ZOSYN IS COMPLETED. IV ON THE RIGHT FOREARM IS PATENT AND FLUSED WELL. PATIENT INDEPENDENT. STILL PENDING FOR CONVELESCENT PLASMA TRANSFUSION. CONSENT IS SIGNED. TYPE AND CROSS REOBTAINED. BLOOD SUGAR BEFORE DINNER IS 166, 3U OF COVERAGE WAS GIVEN. WILL REINFORSE DIABETIC EDUCATION, AND CONTINUE TO MONITOR PATIENT.
[2020-09-07 20:19] VITALS: BP 143/70
[2020-09-08 06:20] VITALS: BP 114/67
[2020-09-08 08:05] VITALS: BP 128/67
[2020-09-08 08:22] LABS: BASOPHIL % 0.1 % (0.2-1.5); PLATELET COUNT 366 x10^3mcL (152-348)
[2020-09-08 09:38] LABS: CALCIUM 8.6 mg/dL (8.5-10.1); CARBON DIOXIDE 22.3 mmol/L (21-32); CHLORIDE SERUM 102 mmol/L (98-107); GFR1 > 60 mL/min; GLUCOSE SERUM 108 mg/dL (74-106); MAGNESIUM 2.7 mg/dL (1.8-2.4); PHOSPHOROUS 3.3 mg/dL (2.5-4.9); POTASSIUM SERUM 4.4 mmol/L (3.5-5.1); SODIUM SERUM 135 mmol/L (136-145)
[2020-09-08 12:01] VITALS: BP 126/71
[2020-09-08 17:01] VITALS: BP 127/72
--- NOTE | 2020-09-08 19:10 | NUR ---
RECEIVED REPORT FROM DAY SHIFT NURSE. PATIENT ON OZYMISER N/C 12 L. HAD NOT RECEIVED CONVALESCENT PLASMA. IV @ LFA RUNNING 10 ML/HR NS TKVO.
--- NOTE | 2020-09-08 19:59 | NUR ---
PATIENT LYING SUPINE FLAT ON THE BED. ON 12 L OXYMIZER. STAED HIS CONDITION HAD NOT IMPROVED EVERSINCE HE GOT ADMITED TO HOSPITAL. KNEW HE WAS WAITING FOR CONVALESCENT PLASMA. A/O X4. CALM AND COOPERATIVE. SPEAKING MALAGASY. DIMINISHED BILAT BASES. NO ACUTE RESPIRATORY DISTRESS NOTED. O2 SAT 96%. IV @LFA 20G RUNNING 10 ML/HR NS TKVO. BOWEL SOUND HEAR ON 4 QUAD. ABLE TO USE URINAL. BED SIDE COMMODE AND URINAL NEAR THE BED. EDUCATED PATIENT ABOUT POSITIONING. PATIENT VERBALLY UNDERSTOOD INSTRUCTION. GENERALIZED WEAKNESS NOTED. NO C/O PAIN AT THIS TIME. BED AT THE LOWEST POSITION. CALL LIGHT WITHIN REACH. WILL CONITNUE TO MONITOR.
[2020-09-08 21:22] VITALS: BP 106/63
--- NOTE | 2020-09-09 00:09 | NUR ---
PATIENT LYING FLAT ON HIS RIGHT SIDE RESTING COMFORTABLY. ON 12 L OXYMIZER. NO ACUTE RESPIRATORY DISTRESS NOTED. CALL LIGHT WITHIN REACH. WILL CONTINUE TO MONITOR.
--- NOTE | 2020-09-09 05:14 | NUR ---
PATIENT LYING ON HIS RIGHT SIDE RESTING COMFORTABLY. ON OXYMIZER 12 L. NO APPARENT DISTRESS NOTED. WILL CONTINUE TO MONITOR.
[2020-09-09 05:53] VITALS: BP 132/80
[2020-09-09 07:30] VITALS: BP 128/69
--- NOTE | 2020-09-09 09:06 | NUR ---
RECIEVED PT IN A STABLE CONDITION. HE IS A 65Y MALE ADMITTED ON 08/29/20 WITH A CC OF COVID AND AND ADMITTING DX OF COVID PNA AND HYPOXIA. HE IS AAOX4 ON TELE 48 SHOWING NSR, PULSES PALPABLE AND NO EDEMA NOTED. LUNG SOUNDS DIMINISHED AT BASES AND HE IS ON 12L OXYMIZER WITH SAT AROUND 96%. ABDOMEND SOFT AND NORMOACTIVE X4, BED IS LOW WITH CALL LIGHT IN REACH. WILL CONTINUE TO MONITOR
[2020-09-09 12:49] VITALS: BP 144/67
[2020-09-09 18:08] VITALS: BP 120/79
--- NOTE | 2020-09-09 18:55 | NUR ---
PT REMAINED STABLE THROUGHOUT THE REMAINDER OF THE SHIFT WITH ALL INTERVENTIONS CARRIED OUT PER PROTOCOL. NO SIGNIFICANT CHANGES IN PT STATUS NOTED. HE IS STILL ON 12L OXYMIZER WITH SAT AROUND 96%. BED IS IN THE LOW POSITION WITH THE CALL LIGHT IN REACH. WILL CONTINUE TO MONITOR.
--- NOTE | 2020-09-09 20:00 | NUR ---
PATIENT IS A/O X4. ON TELE 48. NSR. DENIES CHEST PAIN AND CHEST PRESSURE. PULSES PALPABLE AND NO EDEMA NOTED. DIMINIHSED BASES. ON 12 L OXYMIZER. NORMOACTIVE BOWEL SOUNDS X4. LAST BM 09/08/20. DENIES CONSTIPATION AND DIARRHEA. URINAL AND BSC AT BEDSIDE. AMBULATORY. SKIN INTACT, DENIES ANY PAIN AT THIS TIME. 20G LFA, CDI, BED IN LOWEST AND LOCKED POSITION. CALL LIGHT WITHIN REACH. WILL CONT TO MONITOR.
[2020-09-09 20:35] VITALS: BP 127/71
--- NOTE | 2020-09-10 | NUR ---
PATIENT RESTING IN BED WITH EYES CLOSED. BREATHING E/U. NO DISTRESS NOTED. WILL CONT TO MONITOR.
[2020-09-10 05:55] VITALS: BP 129/75
--- NOTE | 2020-09-10 07:00 | NUR ---
PATIENT IS STABLE AT THIS TIME. WILL ENDORSE CARE TO AM NURSE. STILL WAITING ON PLASMA.
--- NOTE | 2020-09-10 08:56 | NUR ---
RECIEVED PT IN A STABLE CONDITION. HE IS A 65Y MALE ADMITTED ON 08/29/20 WITH A CC OF COVID AND AND ADMITTING DX OF COVID PNA AND HYPOXIA. HE IS AAOX4 ON TELE 48 SHOWING NSR, PULSES PALPABLE AND NO EDEMA NOTED. LUNG SOUNDS DIMINISHED AT BASES AND HE IS ON 12L OXYMIZER WITH SAT AROUND 96%. ABDOMEN SOFT AND NORMOACTIVE X4, BED IS LOW WITH CALL LIGHT IN REACH. WILL CONTINUE TO MONITOR.
[2020-09-10 09:12] VITALS: BP 124/77
[2020-09-10 12:33] VITALS: BP 130/75
--- NOTE | 2020-09-10 15:53 | NUR ---
Initial Nutrition Assessment: WendyA ARSLAN ROBERTS 65M MR Dx: Hypoxia, COVID 19 PNA PMHx: none noted PSHx: none noted Labs: (09/08) Na: 135, BUN: 32, WBC: 15.7 (09/05) Na 133L, BUN 30H, BG 113H, POC BG 114H, Ca 8.4L, (09/04) WBC 11.5H, AST 49H, ALT 129H, Alk ph 148H, Albumin 2.3L, (09/03) Mg 2.6H, Direct bilirubin 0.24H, (08/30) CRP 43.9H, (08/29) A1C 6.4H, Ferritin 1129.3H, *Lipid panel WNL on 08/29 Meds: Zosyn, Mucinex, Colace, Humulin, Zinc sulfate, Vitamin D, Vitamin C, Lovenox, Decadron, Norvasc Diet: Regular diet, on Glucerna bid PO intakes: improving in last 3 days to 100%, before was variable at 50-100%, avg 65% Ht: 182.88cm/72in Wt: 83.461kg/184lbs (same) BMI: 25kg/m2 Bed scale: IBW: 80.91kg/178lbs %IBW: 103.15% UBW: 160lbs per pt's Edema: none noted Last BM: 09/08 Skin: skin intact Bharath: [address] (09/05/2020) Per progress note (09/05), no acute event overnight, remains on 15L NRB, leukocytosis continues to improve. RD was not able to get in touch with pt via bedside phone. RD spoke with pt's to gather information. Per pt's , she did not notice any recent weight changes, but they also didn't closely monitor his body weight, and pt's last weight was 160lbs per pt's . At home, pt followed a regular diet and preferred foods with heavy flavors. Pt's stated that pt sometimes drank up to several cans of soda during summertime, but she tries to make fresh fruit juices for pt 2-3 times a week. Pt did not practice any physical activity outside of work d/t pt's work was very physically demanding per pt's . Current Rd note (09/10): last RD spoke with pt's regarding diabetes education, pt appears to be eating much better since last assessment, per MD notes pt continues on O2 and staff will wean as tolerated, per RN pt has been doing better and eating as improved Estimated Nutritional Needs Based on ideal body weight (80kg) Energy: 2555-5609 kcal/day (30-35 kcal/kg for COVID) Protein: 96-120 g/day (1.2-1.5g/kg for COVID) Fluid: 1363-9215 mL/day (1 mL/kcal) Nutrition Diagnosis: 1. Excessive carbohydrate intake r/t nutrition knowledge deficit a/e/b pt's reporting pt's preference for sweet and heavy flavored food and pt's A1C=6.4% on 08/29. 2. Increased energy and protein intake r/t viral infection a/e/b pt has COVID infection. 3. Inadequate energy and protein intake r/t poor PO intake a/e/b pt average PO intake of 56.8% since admission. Intervention 1. Continue with regular diet as tolerated (no CCHO restriction d/t past poor intakes and caloric need) 2. Continue Glucerna BID for additional 440kcal and 20g protein. Monitor/Evaluate Goal: PO intake at least 75% of estimated needs Monitor: PO intake, Labs, GI function, ONS intake F/U in 3-5 days as MR 09/13-9.
[2020-09-10 16:45] VITALS: BP 121/73
--- NOTE | 2020-09-10 18:49 | NUR ---
PT REMAINED STABLE THROUGHOUT THE REMAINDER OF THE SHIFT WITH ALL INTERVENTIONS CARRIED OUT PER PROTOCOL. NO SIGNIFICANT CHANGES IN PT STATUS NOTED. HIS OXYGEN RATE HAS BEEN DECREASED FROM 12L TO NOW BIENG ON 10L OXYMIZER WITH HIS SAT AROUND 96%. HE IS STILL WAITING TO GET SOME CONVALESCENT PLASMA AND HIS CONSENT IS ALREADY FILED IN THE CHART, JUST WAITING FOR SOME MORE PLASMA TO BECOME AVAILABLE. BED IS IN THE LOW POSITION WITH THE CALL LIGHT IN REACH. WILL CONTINUE TO MONITOR.
[2020-09-10 21:29] VITALS: BP 131/77
[2020-09-11 05:42] VITALS: BP 132/82
[2020-09-11 07:35] LABS: BASOPHIL % 0.1 % (0.2-1.5); PLATELET COUNT 357 x10^3mcL (152-348); RED CELL DISTRIBUTION WIDTH 13.2 % (12.1-16.2)
--- NOTE | 2020-09-11 07:56 | NUR ---
RECIEVED PT IN A STABLE CONDITION. HE IS A 65Y MALE ADMITTED ON 08/29/20 WITH A CC OF COVID AND AND ADMITTING DX OF COVID PNA AND HYPOXIA. HE IS AAOX4 ON TELE 48 SHOWING NSR, PULSES PALPABLE AND NO EDEMA NOTED. LUNG SOUNDS DIMINISHED AT BASES AND HE IS ON 10L OXYMIZER WITH SAT AROUND 97%. ABDOMEN SOFT AND NORMOACTIVE X4, BED IS LOW WITH CALL LIGHT IN REACH. WILL CONTINUE TO MONITOR.
[2020-09-11 08:05] LABS: CALCIUM 8.3 mg/dL (8.5-10.1); CARBON DIOXIDE 28.7 mmol/L (21-32); CHLORIDE SERUM 102 mmol/L (98-107); CREATININE SERUM 0.9 mg/dL (0.7-1.3); GFR1 > 60 mL/min; GLUCOSE SERUM 114 mg/dL (74-106); SODIUM SERUM 137 mmol/L (136-145)
[2020-09-11 08:54] VITALS: BP 117/63
[2020-09-11 12:57] VITALS: BP 134/70
[2020-09-11 17:21] VITALS: BP 116/77
--- NOTE | 2020-09-11 18:49 | NUR ---
PT REMAINED STABLE THROUGHOUT THE REMAINDER OF THE SHIFT WITH ALL INTERVENTIONS CARRIED OUT PER PROTOCOL. NO SIGNIFICANT CHANGES IN PT STATUS NOTED. HE IS STILL ON 10L OXYMIZER WITH HIS SAT AROUND 96%. HE IS STILL WAITING TO GET SOME CONVALESCENT PLASMA AND HIS CONSENT IS ALREADY FILED IN THE CHART, JUST WAITING FOR SOME MORE PLASMA TO BECOME AVAILABLE. BED IS IN THE LOW POSITION WITH THE CALL LIGHT IN REACH. WILL CONTINUE TO MONITOR.
[2020-09-11 20:50] VITALS: BP 124/83
[2020-09-12 06:44] VITALS: BP 137/79
[2020-09-12 09:38] VITALS: BP 121/70
--- NOTE | 2020-09-12 12:38 | NUR ---
WHEN I RECIEVED THE PATIENT FROM THE P[facility] THIS MORNING, I NOTICED THAT BOTH OF THE SCHEDULED ANTIBIOTCS (IV ZOSYN 3.375) WHICH WERE SCHEDULED TO BE INFUSED AT 0000 AND ANOTHER AT 0400, WE BOTH NOT ONLY NOT INFUSED OR SCANNED, BUT WERE BOTH STILL IN THE MED ROOM AND WERE NEVER EVEN TOUCHED. ADDITIONALLY, THE SCHEDULED ACCUCHECK FOR 0630 WAS NOT COMPLETED. I NOTIFIED THE CHARGE NURSE.
[2020-09-12 13:44] VITALS: BP 119/72
[2020-09-12 13:56] LABS: BASOPHIL % 0.3 % (0.2-1.5); PLATELET COUNT 377 x10^3mcL (152-348); RED CELL DISTRIBUTION WIDTH 12.7 % (12.1-16.2)
[2020-09-12 14:59] LABS: CALCIUM 8.8 mg/dL (8.5-10.1); CARBON DIOXIDE 27.4 mmol/L (21-32); CHLORIDE SERUM 100 mmol/L (98-107); CREATININE SERUM 0.9 mg/dL (0.7-1.3); GFR1 > 60 mL/min; GLUCOSE SERUM 120 mg/dL (74-106); POTASSIUM SERUM 4.2 mmol/L (3.5-5.1); SODIUM SERUM 134 mmol/L (136-145)
[2020-09-12 17:33] VITALS: BP 121/75
--- NOTE | 2020-09-12 18:11 | NUR ---
PT REMAINED STABLE THROUGHOUT THE REMAINDER OF THE SHIFT WITH ALL INTERVENTIONS CARRIED OUT PER PROTOCOL. NO SIGNIFICANT CHANGES IN PT STATUS NOTED. I DECREASED HIS O2 FROM 10L DOWN TO 8L OXYMIZER WITH HIS SAT AROUND 96%. HE IS STILL WAITING TO GET SOME CONVALESCENT PLASMA AND HIS CONSENT IS ALREADY FILED IN THE CHART, JUST WAITING FOR SOME MORE PLASMA TO BECOME AVAILABLE. BED IS IN THE LOW POSITION WITH THE CALL LIGHT IN REACH. WILL CONTINUE TO MONITOR.
[2020-09-12 21:10] VITALS: BP 123/68
[2020-09-13 05:45] VITALS: BP 115/68
--- NOTE | 2020-09-13 06:30 | NUR ---
PATIENT REMAINS ALERT. HAD FIAR AND UNEVENTFUL SHIFT. DENIES PAIN AND DISCOMFORTS. 02 ONGOING VIA OXYMIZER. AND TO TURN AND REPOSITION SELF. ABLE TO AMBULATE TO BSC. DENIES PAIN AND DISCOMFORTS. CALL LIGHT IN EASY REACH.
--- NOTE | 2020-09-13 07:45 | NUR ---
RECIEVED REPORT FROM PM NURSE. PT IN COVID ISOLATION. WILL MAKE ROUNDS SHORTLY
[2020-09-13 08:58] VITALS: BP 123/72
[2020-09-13 10:16] LABS: BASOPHIL % 0.1 % (0.2-1.5); PLATELET COUNT 328 x10^3mcL (152-348); RED CELL DISTRIBUTION WIDTH 13.3 % (12.1-16.2)
[2020-09-13 10:21] LABS: CALCIUM 8.3 mg/dL (8.5-10.1); CARBON DIOXIDE 26.5 mmol/L (21-32); CHLORIDE SERUM 100 mmol/L (98-107); GFR1 > 60 mL/min; GLUCOSE SERUM 191 mg/dL (74-106); POTASSIUM SERUM 3.7 mmol/L (3.5-5.1); SODIUM SERUM 135 mmol/L (136-145)
[2020-09-13 12:56] VITALS: BP 121/71
--- NOTE | 2020-09-13 14:14 | NUR ---
PT LYING IN BED SUPINE. BREATHING EVEN, UNLABORED. NO APPARENT DISTRESS/DISCOMFORT NOTED. PT HAS NO FURTHER QUESTIONS/CONCERNS AT THIS TIME. BED IN LWOEST POSITION, RAILS UP, CALL LIGHT WITHINR EACH
[2020-09-13 16:16] VITALS: BP 129/71
--- NOTE | 2020-09-13 18:42 | NUR ---
PT LYING IN BED, APREHENSIVE AND COMBATIVE. DOES NOT WANT TO BE TOUCHED. RECIEVED CALL FROM PAGE IN RADIOLOGY CONCERNING PT HEAD CT SCAN. PER RADIOLOGIST "PT IS HAVING A R PARIETAL LOBE STROKE AT THIS MOMENT" DR. CABEZAS PAGED AT [phone]. NO CALL BACK OF [phone]. RESIDENT CALL PHONE CALLED, LEFT MESSAGE ON VOICEMAIL. CHARGE NURSE DOTTIE MADE AWARE OF SITUATION. WILL MONITOR PT CLOSELY. BED IN LOWEST POSITION, RAILS UP, CALL LIGHT WITHIN REACH
[2020-09-13 20:55] VITALS: BP 126/75
[2020-09-14 05:30] VITALS: BP 130/80
--- NOTE | 2020-09-14 06:36 | NUR ---
PT ASLEEP ON BED, EASILY AROUSABLE, WITH SOB/ DISTRESS ON OXYMIZER @6L, NO C/O PAIN A THIS TIME, IVSL ON LFA INTACT WITHOUT INFILTRATION/ BLEEDING, VSS.
--- NOTE | 2020-09-14 07:29 | NUR ---
RECIEVED REPORT FROM PM NURSE. PT IN COVID ISOLATION. WILL MAKE ROUNDS SHORTLY.
[2020-09-14 08:19] LABS: BASOPHIL % 0.1 % (0.2-1.5); PLATELET COUNT 312 x10^3mcL (152-348); RED CELL DISTRIBUTION WIDTH 13.1 % (12.1-16.2)
[2020-09-14 08:37] LABS: CALCIUM 8.3 mg/dL (8.5-10.1); CARBON DIOXIDE 27.4 mmol/L (21-32); CHLORIDE SERUM 103 mmol/L (98-107); CREATININE SERUM 0.9 mg/dL (0.7-1.3); GFR1 > 60 mL/min; GLUCOSE SERUM 102 mg/dL (74-106); POTASSIUM SERUM 4.2 mmol/L (3.5-5.1); SODIUM SERUM 137 mmol/L (136-145)
[2020-09-14 09:27] VITALS: BP 124/81
[2020-09-14 11:38] VITALS: BP 110/70
--- NOTE | 2020-09-14 17:40 | NUR ---
PT TOLERATING 5L OXYMIZER WELL. O2 SAT 95-97%. SUPPLEMENTAL O2 REDUCED TO 4L NC. EDUCATED PT ON S/S LOW O2 SAT. PT VEBALIZED UNDERSTANDING. PT UNDERSTANDS TO CALL SHOULD ANY S/S LOW O2 SAT BE EXPERIENCED. PT IN NO ACUTE DISTRESS/DISCOMFOMRT AT THIS TIME. NO FURTHER QUESTIONS/CONCERNS NOTED. WILL CONTINUE TO MONITOR. BED IN LOWEST POSITITON, RAILS UP, CALL LIGHT WITHIN REACH
[2020-09-14 17:49] VITALS: BP 111/67
--- NOTE | 2020-09-14 19:29 | NUR ---
PT LYING IN BED COMFORTABLY. BREATHING EU. NO ACUTE DISTRESS/DISCOMFORT NOTED. PT HAS NO FURTHER QUESTIONS/CONCERNS AT THIS TIME. ALL OF PT NEEDS MET. WILL ENDORSE TO PM NURSE. BED IN LWOEST POSITION, RAILS UP, CALL LIGHT WITHIN REACH
[2020-09-14 21:33] VITALS: BP 108/67
[2020-09-15 06:06] VITALS: BP 126/74
--- NOTE | 2020-09-15 06:57 | NUR ---
NO ACUTE CHANGES OVERNIGHT. PT REMAINS ON 4L NC SATURATING WNL AND NO C/O SOB. ALL NEEDS MET. BED IN LOWEST POSITION, SIDE RAILS X 2, CALL LIGHT WITHIN REACG
--- NOTE | 2020-09-15 07:18 | NUR ---
RECIEVED REPORT FROM PM NURSE. PT IN COVID ISOLATION. WILL MAKE ROUNDS SHORTLY.
[2020-09-15 10:00] VITALS: BP 137/79
[2020-09-15 13:17] VITALS: BP 131/74
[2020-09-15 13:48] LABS: C REACTIVE PROTEIN 1.7 mg/dL (<=0.9); CALCIUM 8.1 mg/dL (8.5-10.1); CARBON DIOXIDE 27.2 mmol/L (21-32); CHLORIDE SERUM 98 mmol/L (98-107); CREATININE SERUM 0.9 mg/dL (0.7-1.3); GFR1 > 60 mL/min; GLUCOSE SERUM 135 mg/dL (74-106); POTASSIUM SERUM 3.4 mmol/L (3.5-5.1); SODIUM SERUM 133 mmol/L (136-145)
--- NOTE | 2020-09-15 13:49 | NUR ---
HEAD TO UNDER UNDER SHIFT REASSESSMENT PT TOLERATING 4L O2 WELL, O2 SAT 97%. REDUCED SUPPLEMENTAL O2 TO 3L NC. PT TOLERATING WELL. O2 SAT 96%. EDUCATED PT ON S/S LOW O2 SAT, PT VERBALIZED UNDERSTANDING. INFORMED PT TO CALL SHOULD S/S BE EXPERIENCED, PT UNDERSTANDS. NO ACUTE DISTRESS/DISCOMFORT NOTED, PT HAS NO FURTHER QUESTIONS AT THIS TIME. WILL CONTINUE TO MONITOR. BED IN LOWEST POSITION, RAILS UP, CALL LIGHT WITHIN REACH
[2020-09-15 13:51] LABS: BASOPHIL % 0.4 % (0.2-1.5); PLATELET COUNT 264 x10^3mcL (152-348); RED CELL DISTRIBUTION WIDTH 13.5 % (12.1-16.2)
[2020-09-15 17:33] VITALS: BP 130/75
--- NOTE | 2020-09-15 20:24 | NUR ---
PT TOLERATING 3L WELL, REDUCED SUPPLEMENTAL O2 TO 2L NC. ALL OF PT NEEDS MET. NO ACUTE DISTRESS/DISCOMFORT NOTED. PT HAS NO FURTHER QUESTIONS AT THIS TIME. WILL ENDORSE TO PM NURSE. BED IN LOWEST POSITION, RAILS UP, CALL LIGHT WITHIN REACH
[2020-09-15 21:54] VITALS: BP 129/81
--- NOTE | 2020-09-16 02:25 | NUR ---
ASSUMED CARE OF PATIENT ON 09/15/2019 AT 1920, PATIENT SEEN IN BED, AWAKE, ALERT AND ORIENTED AND ABLE TO MAKE ALL NEEDS KNOWN. ASSESSMENT NOTED, DENIES PAIN. ORDERS REVIEWED AND TREATMENT PLAN CONTINUES ORDERED. PATIENT REQUESTED SLEEPING AIDE, MELATONIN GIVEN ORDERED. PATIENT CURRENTLY SLEEPING WITH NO DISTRESS NOTED. CALL LIGHT WITHIN EASY REACH, BED IN LOWEST POSITION, PATIENT CONTINUOUS TO BE MONITORED CLOSELY.
[2020-09-16 05:54] VITALS: BP 138/82
--- NOTE | 2020-09-16 07:40 | NUR ---
RECEVIED PT FROM LOAD DISPATCHER NURSE. TELE # [id number], SR. PT IS AOX4, BREATHING EVEN/UNLABORED ON 2 L NC, IN NO ACUTE RESP DISTRESS AT THIS TIME. PT REPORTED HAVING LOOSE STOOLS, WILL HOLD COLACE THIS AM. BSC IN ROOM. PT REPORTS NO PAIN AT THIS TIME. IV TO LFA PATENT, CDI. BED IN LOWEST POSITION, CALL LIGHT IN REACH.
[2020-09-16 08:49] VITALS: BP 128/85
[2020-09-16 10:54] LABS: BASOPHIL % 0.3 % (0.2-1.5); PLATELET COUNT 266 x10^3mcL (152-348); RED CELL DISTRIBUTION WIDTH 12.9 % (12.1-16.2)
[2020-09-16 11:14] LABS: CALCIUM 8.4 mg/dL (8.5-10.1); CARBON DIOXIDE 26.6 mmol/L (21-32); CHLORIDE SERUM 102 mmol/L (98-107); CREATININE SERUM 0.8 mg/dL (0.7-1.3); GFR1 > 60 mL/min; GLUCOSE SERUM 98 mg/dL (74-106); POTASSIUM SERUM 3.5 mmol/L (3.5-5.1); SODIUM SERUM 137 mmol/L (136-145)
--- NOTE | 2020-09-16 12:06 | NUR ---
RENATA PT'S BS, WAS 162. GAVE 3 UNITS REG INSULIN PER SLIDING SCALE. PT BREATHING EVEN/UNLABORED ON 2 L NC. IN NO ACUTE RESP DISTRESS. IV TO LFA PATENT, CDI. PT REPORTS NO PAIN/SOB AT THIS TIME. PROVIDED PT WITH COTTON TIP APPLICATOR AND LUBRICANT FOR PT'S DRY NOSTRILS REQUESTED. NO FURTHER CONCERNS VOICED AT THIS TIME. BED IN LOWEST POSITION, CALL LIGHT IN REACH.
[2020-09-16 12:14] VITALS: BP 114/77
--- NOTE | 2020-09-16 14:00 | NUR ---
CALLED BLOOD BANK REGARDING PT'S CONVALESCENT PLASMA ORDER, ORDER WAS NEVER COMPLETED AND THE ORDER HAS BEEN IN SINCE 09/01/20. PER BLOOD BANK TECH, NEED A RE-TYPE AND SCREEN SINCE LAST ONE HAD . THEY HAVE THE PT'S BLOOD TYPE IN STOCK NOW, SO ONCE THE RE-TYPE AND SCREEN HAS BEEN DONE AND A NEW ORDER FOR CONVALESCENT PLASMA HAS BEEN ENTERED, THEY CAN THAW THE 1 UNIT CONV PLASMA. WILL INPUT ORDERS ACCORDINGLY.
[2020-09-16 18:03] VITALS: BP 109/73
--- NOTE | 2020-09-16 18:20 | NUR ---
PT LAYING IN SUPINE POSITION, AAOX4, BREATHING EVEN/UNLABORED ON RA. O2 SAT 91%. PT STATES HE DOES NOT WANT TO USE THE O2 AT THIS TIME. PT DENIES SOB/PAIN. NO FURTHER CONCERNS VOICED. IV TO LFA PATENT, SL, CDI. PT AWAITING CONVALESCENT PLASMA INFUSION, TYPE AND SCREEN HAS RESULTED, AWAITING BLOOD BANK TO CALL THAT PLASMA IS READY. BED IN LOWEST POSITION,CALL LIGHT IN REACH.
[2020-09-16 21:40] VITALS: BP 128/74
[2020-09-17 05:59] VITALS: BP 142/77
--- NOTE | 2020-09-17 06:36 | NUR ---
PT IS AAOX4, VERBALIZED OF FEELING BETTER.SKIN IS INTACT. TOLERATING DIABETIC DIET. OCCASSIONAL NONPRODUCTIVE COUGHING NOTED. ON ROOM AIR, SLIGHT NOSEBLEEDING NOTED, PER PT FROM DRYNESS FROM O2 INHALATION. SAT 95-96%. S/P CONVALESCENT PLASMA TRANSFUSION. IV ACCESS LFA INTACT, CLEAN AND DRY. PT IS CONTINENT, USES THE URINAL. NEEDS ATTENDED. ACCUCHECKS DONE, COVERAGE GIVEN . CALL LIGHT WITHIN REACH. NO PRN GIVEN DURING SHIFT. NO CHANGES NOTED. PT IS HOPING HE CAN GO HOME TODAY.
--- NOTE | 2020-09-17 07:05 | NUR ---
RECEIVED REPORT FROM THRILL PERFORMER RN. PT IN BED ALERT AND ORIENTED. ON DROPLET PRECAUTION FOR COVID19, ON 2LPM VIA NC, NO ACUTE RESPIRATORY DISTRESS. ON TELE 45. IV SITE TO RFA SALINE LOCK. DENIES PAIN OR DISCOMFORT AT THIS TIME. BED IN LOWEST POSITION. CALL LIGHT WITHIN REACH. WILL CONTINUE TO MONITOR.
[2020-09-17 08:00] VITALS: BP 138/65
[2020-09-17 10:09] LABS: C REACTIVE PROTEIN 1.5 mg/dL (<=0.9); CALCIUM 8.7 mg/dL (8.5-10.1); CHLORIDE SERUM 99 mmol/L (98-107); CREATININE SERUM 0.7 mg/dL (0.7-1.3); GFR1 > 60 mL/min; GLUCOSE SERUM 67 mg/dL (74-106); POTASSIUM SERUM 3.6 mmol/L (3.5-5.1); SODIUM SERUM 134 mmol/L (136-145)
[2020-09-17] MEDS ORDERED: ZINC SULFATE220 MG PO (10:18)
[2020-09-17] MEDS ORDERED: NOR5 PO (10:18)
[2020-09-17] MEDS ORDERED: MUCINEX600 MG PO (10:18)
[2020-09-17] MEDS ORDERED: VITC PO (10:19)
[2020-09-17] MEDS ORDERED: MEDROL DOSEPAK4 MG PO (10:19)
[2020-09-17] MEDS ORDERED: D-10001 TAB PO (10:19)
[2020-09-17] MEDS ORDERED: ELIQUIS2.5 MG PO (10:22)
--- NOTE | 2020-09-17 10:43 | NUR ---
Follow UP Nutrition Assessment: WendyA ARSLAN ROBERTS 65M MR Dx: Hypoxia, COVID 19 PNA PMHx: none noted PSHx: none noted Labs: (09/16) WBC 12.8H (09/17) NA 134L, BUN 20H, BG 67L, POCBG 187H, CRP 1.5H (09/08) Na: 135, BUN: 32, WBC: 15.7 (09/05) Na 133L, BUN 30H, BG 113H, POC BG 114H, Ca 8.4L, (09/04) WBC 11.5H, AST 49H, ALT 129H, Alk ph 148H, Albumin 2.3L, (09/03) Mg 2.6H, Direct bilirubin 0.24H, (08/30) CRP 43.9H, (08/29) A1C 6.4H, Ferritin 1129.3H, *Lipid panel WNL on 08/29 Meds: Zosyn, Mucinex, Colace, Humulin, Zinc sulfate, Vitamin D, Vitamin C, Lovenox, Decadron, Norvasc Diet: Regular diet, on Glucerna bid PO intakes: improving in last 3 days to 100%, prior below 80% (avg intake 95% x last 6 meals) Ht: 182.88cm/72in Wt: 83.461kg/184lbs (same) BMI: 25kg/m2 Bed scale: IBW: 80.91kg/178lbs %IBW: 103.15% UBW: 160lbs per pt's Edema: none noted Last BM: 09/16 Skin: skin intact Bharath: [address] note (09/10): last RD spoke with pt's regarding diabetes education, pt appears to be eating much better since last assessment, per MD notes pt continues on O2 and staff will wean as tolerated, per RN pt has been doing better and eating as improved RD note (09/17): Patient has improved with O2 and oral intake now eating 100% of meals. His average intake taken from flowsheets 95% x 6 meals. He is Newly diagnosed DM type 2, uncontrolled prior RD spoken/educated. D/C instructions in place, will monitor. Estimated Nutritional Needs Based on ideal body weight (80kg) Energy: 7710-6179 kcal/day (30-35 kcal/kg for COVID) Protein: 96-120 g/day (1.2-1.5g/kg for COVID) Fluid: 9183-0603 mL/day (1 mL/kcal) Nutrition Diagnosis: 1. Excessive carbohydrate intake r/t nutrition knowledge deficit a/e/b pt's reporting pt's preference for sweet and heavy flavored food and pt's A1C=6.4% on 08/29. 2. Increased energy and protein intake r/t viral infection a/e/b pt has COVID infection. 3. Inadequate energy and protein intake r/t poor PO intake a/e/b pt average PO intake of 56.8% since admission. Intervention 1. Continue with regular diet as tolerated (no CCHO restriction d/t past poor intakes and caloric need) 2. Continue Glucerna BID for additional 440kcal and 20g protein. Monitor/Evaluate Goal: PO intake at least 75% of estimated needs Monitor: PO intake, Labs, GI function, ONS intake F/U in 3-5 days as MR 09/20-16
[2020-09-17 13:18] VITALS: BP 130/80
[2020-09-17 16:08] LABS: PLATELET COUNT 260 x10^3mcL (152-348); RED CELL DISTRIBUTION WIDTH 13.2 % (12.1-16.2)
[2020-09-17 16:56] LABS: BAND NEUTROPHIL 0 % (0-10); BASOPHIL 0 % (0-2); MONOCYTE 5 % (0-7); SEGMENTED NEUTROPHILS 84 % (37-75)
[2020-09-17 16:57] LABS: rbc morphology (normal/abnorm) NORMAL (NORMAL)
[2020-09-17 17:29] VITALS: BP 140/85
--- NOTE | 2020-09-17 18:10 | NUR ---
PATIENT SIGNED DISCHARGE FORMS/INVENTORY. INSTRUCTED TO FOLLOW UP WITH PCP AND SCHEDULED APPTS. TEACHING GIVEN ON DISCHARGE PRESCRIPTION. ALL QUESTION AND CONCERNS ADDRESSED, NO FURTHER QUESTION AT THIS TIME. D/C IV STIE FROM LFA, NO NOTED BLEEDING. D/C FROM TELE 45. DENIES PAIN OR DISCOMFORT AT THIS TIME. CURRENTLY ON ROOM AIR, 95%02SAT, NO ACUTE RESPIRATORY DISTRESS. ALL BELONGINGS KEPT BY PATIENT. ASSISTED PT DOWN TO LOBBY BY STAFF. LEFT VIA PRIVATE CAR.
== END 2020-09-17 18:35 | disposition home or self-care (01) | DRG 871 ==
LOC: ED 01:58 → DU 05:01
PROVIDERS: Emergency Medicine; Family Medicine; Internal Medicine; ADMIT Internal Medicine; ATTEND Internal Medicine
PROC: XW033E5 Introduction of Remdesivir Anti-infective into Peripheral Vein, Percutaneous Approach, New Technology Group 5 (ICD-10-PCS; 2020-08-30)
PROC: XW13325 Transfusion of Convalescent Plasma (Nonautologous) into Peripheral Vein, Percutaneous Approach, New Technology Group 5 (ICD-10-PCS; principal; 2020-09-17)
DX: A41.89 Other specified sepsis (principal); U07.1 COVID-19; J12.82 Pneumonia due to coronavirus disease 2019; J96.01 Acute respiratory failure with hypoxia; E87.1 Hypo-osmolality and hyponatremia; E44.1 Mild protein-calorie malnutrition; I10 Essential (primary) hypertension; R74.01 Elevation of levels of liver transaminase levels; E83.51 Hypocalcemia; Z68.24 Body mass index [BMI] 24.0-24.9, adult; Z79.899 Other long term (current) drug therapy
CPT/HCPCS: 36600; 82962; 83880; 84439; 85378; 87804; 94150; G0378; J1100; J1650; J1815; J2543; J7030; J7040; J7050; U0003

== ENCOUNTER 2020-10-11 22:42 | Emergency (ER) | payer BC ==
[~2020-10-11] VITALS: Ht 182.9 cm; Wt 72.1 kg
[~2020-10-11 22:42] MED LIST: D-10001 TAB PO; ELIQUIS2.5 MG PO; MEDROL DOSEPAK4 MG PO; MUCINEX600 MG PO; NOR5 PO; VITC PO; ZINC SULFATE220 MG PO
[2020-10-11 22:45] VITALS: Ht 182.9 cm; Wt 72.1 kg
[2020-10-11 23:18] LABS: BASOPHIL % 0.6 % (0.2-1.5); PLATELET COUNT 248 x10^3mcL (152-348); RED CELL DISTRIBUTION WIDTH 14.5 % (12.1-16.2)
[2020-10-11 23:28] LABS: CALCIUM 8.8 mg/dL (8.5-10.1); CARBON DIOXIDE 24.5 mmol/L (21-32); CHLORIDE SERUM 104 mmol/L (98-107); GFR1 > 60 mL/min; GLUCOSE SERUM 113 mg/dL (74-106); SODIUM SERUM 137 mmol/L (136-145)
[2020-10-11 23:33] LABS: ALKALINE PHOSPHATASE 75 U/L (46-116); ALT/SGPT 30 U/L (16-63); AST/SGOT 14 U/L (15-37); BILIRUBIN TOTAL 0.37 mg/dL (0.20-1.00); TOTAL PROTEIN, SERUM 6.9 g/dL (6.4-8.2)
[2020-10-11 23:34] LABS: ALBUMIN 3.2 g/dL (3.4-5.0)
[2020-10-12 00:54] VITALS: BP 161/84
== END 2020-10-12 00:54 | disposition home or self-care (01) ==
LOC: ED 22:42
PROVIDERS: Emergency Medicine
DX: U07.1 COVID-19 (principal); R00.2 Palpitations; R09.02 Hypoxemia
CPT/HCPCS: 83880; 85378